=== PATIENT | female | born 1950 | race African-American/Black ===

== ENCOUNTER 2017-02-18 06:22 | Emergency (ER) | payer MEDICARE, MEDICAID ==
[~2017-02-18] VITALS: Ht 177.8 cm; Wt 84.0 kg
[~2017-02-18 06:22] MED LIST: ASPI-1159 PO; ATOR20TA65 PO; DIVA-18 PO; LAMO100T PO; LEVO50TA8 PO; LOSA50TA20 PO; RISP05 PO
[2017-02-18] MEDS ORDERED: ACETAMINOPHEN 500MG TABLET PO ONE (07:00)
[2017-02-18 10:00] VITALS: BP 131/68
== END 2017-02-18 10:05 | disposition home or self-care (01) ==
LOC: ER 06:22
DX: M17.11 Unilateral primary osteoarthritis, right knee (principal); E78.00 Pure hypercholesterolemia, unspecified; F20.9 Schizophrenia, unspecified; I10 Essential (primary) hypertension; Z79.82 Long term (current) use of aspirin
CPT/HCPCS: 73562; 93971; 99284

== ENCOUNTER 2024-10-28 19:54 | Emergency (ER) | payer MEDICARE, MEDICAID ==
[~2024-10-28] VITALS: Ht 152.4 cm; Wt 64.0 kg
[~2024-10-28 19:54] MED LIST changes: -ASPI-1159 PO; +ASPI-1497 PO; -LAMO100T PO; +LAMO100T16 PO; -LOSA50TA20 PO; +LOSA50TA41 PO
[2024-10-28 20:06] VITALS: O2SAT 99
[2024-10-28 20:45] LABS: HEMATOCRIT. 37.6 % (36.0-48.0); HEMOGLOBIN. 12.2 g/dL (12.0-16.0); MEAN PLATELET VOLUME 8.7 fl (7.4-10.4); PLATELET 149 x1000/uL (130-400); RED BLOOD CELL COUNT 3.79 mill/uL (4.2-5.4); RED CELL DISTRIBUTION WIDTH 14.4 % (11.6-14.6)
[2024-10-28 20:55] LABS: CREATININE 1.5 mg/dL (0.6-1.0); UREA NITROGEN BLOOD 22 mg/dL (9-23)
[2024-10-28 20:56] LABS: TROPONIN I HIGH SENSITIVITY 13 ng/L (3.0-34)
[2024-10-28 21:01] LABS: EOSINOPHILS % MANUAL 3.0 % (0.0-5.0); LYMPHOCYTES % MANUAL 31.0 % (20.0-60.0); MONOCYTES % MANUAL 20.0 % (2.0-8.0); NEUTROPHILS % MANUAL 46.0 % (45.0-75.0); PLATELET ESTIMATE NORMAL
[2024-10-28] MEDS: ACETAMINOPHEN 500MG TABLET PO ONE (21:15)
[2024-10-28] MEDS ORDERED: ACET-2708 MT (21:22)
[2024-10-28 22:00] VITALS: BP 110/61; PULSE 85; RESP 16; TEMP 36.7; O2SAT 100
== END 2024-10-28 22:10 | disposition home or self-care (01) ==
LOC: ER 19:54
DX: G89.29 Other chronic pain (principal); M25.561 Pain in right knee; E78.00 Pure hypercholesterolemia, unspecified; F20.9 Schizophrenia, unspecified; I10 Essential (primary) hypertension; Z55.6 Problems related to health literacy; Z79.899 Other long term (current) drug therapy
CPT/HCPCS: 36415; 71045; 72170; 73562; 80048; 82550; 84484; 85025; 99284